=== PATIENT | female | born 1995 | race Caucasian/White ===

== ENCOUNTER 2020-05-09 17:52 | Inpatient (IN) | payer OTHER, MEDICAID ==
[~2020-05-09] VITALS: Ht 160 cm; Wt 92.3 kg
[2020-05-09 17:55] VITALS: BP 145/87
[2020-05-09 18:50] LABS: BASOPHILS # (AUTO) 0.03 x10^3/uL (0-0.1); BASOPHILS % (AUTO) 0 % (0-1); EOSINOPHILS % (AUTO) 2 % (1-7); LYMPHOCYTES # (AUTO) 1.67 x10^3/uL (1-3.4); LYMPHOCYTES % (AUTO) 13 % (22-44); MD NO; MEAN CORPUSCULAR HEMOGLOBIN 28.8 pg (27.0-34.8); MEAN CORPUSCULAR HGB CONC 33.5 g/dL (32.4-35.8); MEAN PLATELET VOLUME 9.8 fL (7.4-10.4); MONOCYTES # (AUTO) 0.68 x10^3/uL (0.2-0.8); MONOCYTES % (AUTO) 5 % (2-9); NEUTROPHILS # (AUTO) 10.02 x10^3/uL (1.8-6.8); NEUTROPHILS % (AUTO) 80 % (42-75); PLATELET COUNT 221 x10^3/uL (130-400); RED BLOOD COUNT 4.26 x10^6/uL (3.82-5.3); RED CELL DISTRIBUTION WIDTH 13.8 % (9.6-15.2)
[2020-05-09 18:54] LABS: MICROSCOPIC NOT IND
[2020-05-09 19:02] LABS: ALANINE AMINOTRANSFERASE 31 U/L (12-78); ALBUMIN 2.7 g/dL (3.4-5.0); ANION GAP 7 mmol/L (5-15); CALCIUM 9.3 mg/dL (8.5-10.1); CHLORIDE 104 mmol/L (98-107); CREATININE 0.64 mg/dL (0.55-1.02)
[2020-05-09 19:04] LABS: AMPHETAMINE SCREEN, URINE Negative (Negative); BARBITURATE SCREEN, URINE Negative (Negative); BENZODIAZEPINE SCREEN, URINE Negative (Negative); CANNABINOID SCREEN, URINE Negative (Negative); COCAINE SCREEN, URINE Negative (Negative); METHADONE SCREEN, URINE Positive (Negative); OPIATE SCREEN, URINE Negative (Negative); PROTEIN/CREATININE RATIO,URINE 363 (0-200); TOTAL PROTEIN,URINE RANDOM 7 mg/dL (0-12)
[2020-05-09 19:04] LABS: ALKALINE PHOSPHATASE 135 U/L (45-117); BILIRUBIN,TOTAL 0.2 mg/dL (0.2-1.0); TOTAL PROTEIN 7.5 g/dL (6.4-8.2)
[2020-05-09 19:09] LABS: BILIRUBIN, DIRECT < 0.1 mg/dL (0.1-0.2)
[2020-05-09] MEDS ORDERED: LACTATED RINGERS 1,000 ML IV SCH ×2 (20:28→20:38)
[2020-05-09] MEDS ORDERED: FENTANYL/BUPIV./NS/PF 250 ML EPIDCONT SCH (20:28)
[2020-05-09] MEDS ORDERED: EPHEDRINE 50 MG/ML, 1ML IVPush PRN (20:30)
[2020-05-09] MEDS ORDERED: NALOXONE 0.4 MG/ML, 1ML IVPush PRN (20:30)
[2020-05-09] MEDS ORDERED: LACTATED RINGERS 1,000 ML IVBOLUS PRN (20:30)
[2020-05-09] MEDS ORDERED: OXYTOCIN 30U/ 0.9% NaCL 500ML 500 ML IV ONE (20:38)
[2020-05-09] MEDS ORDERED: D5%-LACTATED RINGERS 1,000 ML IV SCH (20:38)
[2020-05-09] MEDS ORDERED: OXYTOCIN 30U/ 0.9% NaCL 500ML 500 ML IV PRN ×2 (20:38→20:54)
[2020-05-09] MEDS ORDERED: AMPICILLIN 2 GM in SODIUM CHLORIDE 0.9% 100 ML IVPB STA (20:38)
[2020-05-09] MEDS ORDERED: TERBUTALINE 1 MG/ML, 1ML IVPush PRN (21:00)
[2020-05-09] MEDS ORDERED: TERBUTALINE 1 MG/ML, 1ML SQ PRN (21:00)
[2020-05-09] MEDS ORDERED: MISOPROSTOL 25 MCG TABLET VG PRN (21:00)
[2020-05-09] MEDS ORDERED: ONDANSETRON 2MG/ML, 2ML IVPush PRN (21:00)
[2020-05-09] MEDS ORDERED: CALCIUM CARBONATE 500 MG TAB.CHEW ONE (21:50)
[2020-05-09] MEDS: CALCIUM CARBONATE 500 MG TAB.CHEW PO PRN (21:51)
[2020-05-09] MEDS ORDERED: OXYTOCIN 30U/ 0.9% NaCL 500ML 500 ML ONE (21:59)
[2020-05-10] MEDS ORDERED: FENTANYL/BUPIV./NS/PF 250 ML EPIDCONT ONE (00:14)
[2020-05-10] MEDS ORDERED: EPHEDRINE 50 MG/ML, 1ML ONE (00:56)
[2020-05-10] MEDS ORDERED: LIDOCAINE 1%, 20ML ONE (00:56)
[2020-05-10] MEDS ORDERED: MISOPROSTOL 200 MCG TABLET ONE (00:56)
[2020-05-10] MEDS ORDERED: TERBUTALINE 1 MG/ML, 1ML ONE (00:56)
[2020-05-10] MEDS ORDERED: AMPICILLIN 1 GM in SODIUM CHLORIDE 0.9% 100 ML IVPB SCH (01:00)
[2020-05-10] MEDS ORDERED: BUPIVACAINE 0.25% ONE (01:11)
[2020-05-10] MEDS: CALCIUM CARBONATE 500 MG TAB.CHEW PO PRN (02:16)
[2020-05-10] MEDS ORDERED: SIMETHICONE 80 MG CHEW TAB PO PRN (04:30)
[2020-05-10] MEDS ORDERED: ONDANSETRON 2MG/ML, 2ML IV PRN (04:30)
[2020-05-10] MEDS ORDERED: MISOPROSTOL 200 MCG TABLET PR PRN (04:30)
[2020-05-10] MEDS ORDERED: IBUPROFEN 600 MG TABLET ONE (05:30)
[2020-05-10] MEDS: IBUPROFEN 600 MG TABLET PO PRN ×3 (05:34→20:43)
[2020-05-10] MEDS ORDERED: METHADONE INTENSOL 10 MG/ML ORAL CONC ONE ×2 (06:00→06:22)
[2020-05-10] MEDS: METHADONE INTENSOL 10 MG/ML ORAL CONC PO SCH ×2 (06:26→09:00)
[2020-05-10] MEDS ORDERED: OXYTOCIN 30U/ 0.9% NaCL 500ML 500 ML ONE (06:28)
[2020-05-10] MEDS: OXYTOCIN 30U/ 0.9% NaCL 500ML 500 ML IV SCH ×2 (06:29→14:17)
[2020-05-10 07:45] VITALS: BP 139/80
[2020-05-10] MEDS: PRENATAL VIT/IRON/FA 1 EACH TABLET PO SCH ×2 (09:00→14:18)
[2020-05-10] MEDS ORDERED: DIPH,PERTUSS(ACELL),TET VAC/PF NC IM-VACC ONE (11:00)
[2020-05-10 12:30] VITALS: BP 136/87
[2020-05-10] MEDS: DOCUSATE 100 MG CAPSULE PO PRN ×2 (14:18→20:43)
[2020-05-10 16:35] VITALS: BP 139/78
[2020-05-10 20:00] VITALS: BP 155/88
[2020-05-11] VITALS: BP 108/65
[2020-05-11] MEDS: OXYTOCIN 30U/ 0.9% NaCL 500ML 500 ML IV SCH ×3 (00:17→20:17)
[2020-05-11 04:00] VITALS: BP 112/72
[2020-05-11] MEDS: IBUPROFEN 600 MG TABLET PO PRN ×3 (05:04→18:30)
[2020-05-11] MEDS ORDERED: METHADONE INTENSOL 10 MG/ML ORAL CONC ONE (05:56)
[2020-05-11] MEDS: METHADONE INTENSOL 10 MG/ML ORAL CONC PO SCH (06:02)
[2020-05-11 07:30] VITALS: BP 126/79
[2020-05-11] MEDS: PRENATAL VIT/IRON/FA 1 EACH TABLET PO SCH (07:48)
[2020-05-11] MEDS: DOCUSATE 100 MG CAPSULE PO PRN ×2 (07:48→20:14)
[2020-05-11 19:40] VITALS: BP 130/83
[2020-05-11] MEDS: ACETAMINOPHEN 325 MG TABLET PO PRN (20:13)
[2020-05-11 22:59] LABS: BASOPHILS # (AUTO) 0.02 x10^3/uL (0-0.1); BASOPHILS % (AUTO) 0 % (0-1); EOSINOPHILS # (AUTO) 0.21 x10^3/uL (0-0.4); EOSINOPHILS % (AUTO) 2 % (1-7); LYMPHOCYTES # (AUTO) 1.72 x10^3/uL (1-3.4); LYMPHOCYTES % (AUTO) 17 % (22-44); MD NO; MEAN CORPUSCULAR HEMOGLOBIN 28.5 pg (27.0-34.8); MEAN CORPUSCULAR HGB CONC 32.8 g/dL (32.4-35.8); MEAN CORPUSCULAR VOLUME 86.7 fL (80-100); MEAN PLATELET VOLUME 9.9 fL (7.4-10.4); MONOCYTES # (AUTO) 0.53 x10^3/uL (0.2-0.8); MONOCYTES % (AUTO) 5 % (2-9); NEUTROPHILS % (AUTO) 76 % (42-75); PLATELET COUNT 223 x10^3/uL (130-400); RED BLOOD COUNT 3.82 x10^6/uL (3.82-5.3); RED CELL DISTRIBUTION WIDTH 14.1 % (9.6-15.2)
[2020-05-12] MEDS: IBUPROFEN 600 MG TABLET PO PRN ×2 (01:08→12:46)
[2020-05-12] MEDS: ACETAMINOPHEN 325 MG TABLET PO PRN ×2 (01:08→12:46)
[2020-05-12] MEDS ORDERED: METHADONE INTENSOL 10 MG/ML ORAL CONC ONE (06:05)
[2020-05-12] MEDS: METHADONE INTENSOL 10 MG/ML ORAL CONC PO SCH (06:10)
[2020-05-12] MEDS: OXYTOCIN 30U/ 0.9% NaCL 500ML 500 ML IV SCH ×2 (06:17→16:17)
[2020-05-12] MEDS: PRENATAL VIT/IRON/FA 1 EACH TABLET PO SCH (07:35)
[2020-05-12] MEDS: DOCUSATE 100 MG CAPSULE PO PRN (07:35)
[2020-05-12 08:53] VITALS: BP 128/77
[2020-05-12] MEDS ORDERED: IBUP-1222 PO (15:47)
== END 2020-05-12 17:15 | disposition home or self-care (01) | DRG 807 ==
LOC: LDOP 17:52 → EDIP 20:27 → LDIP 20:32 → 2NW 05-10 07:39
PROVIDERS: ADMIT Obstetrics & Gynecology; ATTEND Obstetrics & Gynecology
PROC: 10E0XZZ Delivery of Products of Conception, External Approach (ICD-10-PCS; principal; 2020-05-10)
PROC: 3E0R3BZ Introduction of Anesthetic Agent into Spinal Canal, Percutaneous Approach (ICD-10-PCS; 2020-05-10)
PROC: 00HU33Z Insertion of Infusion Device into Spinal Canal, Percutaneous Approach (ICD-10-PCS; 2020-05-10)
DX: O99.824 Streptococcus B carrier state complicating childbirth (principal); Z37.0 Single live birth; F11.90 Opioid use, unspecified, uncomplicated; O99.324 Drug use complicating childbirth; Z3A.37 37 weeks gestation of pregnancy; O13.4 Gestational [pregnancy-induced] hypertension without significant proteinuria, complicating childbirth
CPT/HCPCS: 36415; 80053; 80307; 81003; 82248; 82570; 84156; 84550; 85025; 86592; 86850; 86900; 88307; 90715; G0378; J0290; J3490; J2590; J3010; J7120

== ENCOUNTER → 2020-09-16 | Outpatient (CLI) | payer OTHER, MEDICAID ==
[~2020-09-16] MED LIST: IBUP-1222 PO
== END | disposition home or self-care (01) ==
LOC: RAD 12:41
PROVIDERS: ATTEND Internal Medicine Gastroenterology
DX: R13.19 Other dysphagia (principal)
CPT/HCPCS: 74220